=== PATIENT | female | born 1985 | race African-American/Black ===

== ENCOUNTER 2022-02-26 15:44 | Emergency (ER) | payer BC ==
[~2022-02-26] VITALS: Ht 162.6 cm; Wt 108.9 kg
[2022-02-26] MEDS ORDERED: ACETAMINOPHEN 325 MG TAB ONE (17:45)
[2022-02-26] MEDS ORDERED: CIPRO500 MG PO (17:59)
[2022-02-26] MEDS ORDERED: PYRIDIUM200 MG PO (18:01)
[2022-02-26] MEDS ORDERED: DIFLUCAN100 MG PO (18:08)
[2022-02-26] MEDS ORDERED: ACETAMINOPHEN 325 MG TAB PO ONE (18:45)
== END 2022-02-26 18:51 | disposition home or self-care (01) ==
LOC: FSED 15:44
DX: R30.0 Dysuria (principal); N39.0 Urinary tract infection, site not specified; E11.9 Type 2 diabetes mellitus without complications
CPT/HCPCS: 81003; 81025; 99282

== ENCOUNTER 2024-10-08 17:41 | Emergency (ER) | payer BC ==
[~2024-10-08] VITALS: Ht 162.6 cm; Wt 107.2 kg
[~2024-10-08 17:41] MED LIST: CIPRO500 MG PO; DIFLUCAN100 MG PO; PYRIDIUM200 MG PO
[2024-10-08 17:55] VITALS: PULSE 87; RESP 16; TEMP 98.3; O2SAT 99
[2024-10-08] MEDS: KETOROLAC TROMETHAMINE 30 MG/ML VIAL IM ONE (18:10)
[2024-10-08] MEDS: ACETAMINOPHEN 325 MG TAB PO ONE (18:10)
[2024-10-08] MEDS ORDERED: IBUPROFEN600 MG PO (18:27)
[2024-10-08] MEDS ORDERED: TYLENOL325 MG PO (18:27)
[2024-10-08] MEDS ORDERED: KETOROLAC TROME10 MG PO (19:10)
== END 2024-10-08 19:34 | disposition home or self-care (01) ==
LOC: FSED 17:47
DX: M25.531 Pain in right wrist (principal); M79.641 Pain in right hand; I10 Essential (primary) hypertension; E11.9 Type 2 diabetes mellitus without complications; E78.5 Hyperlipidemia, unspecified
CPT/HCPCS: 73130; 96372; 99283; J1885